=== PATIENT | female | born 1960 | race Caucasian/White ===

== ENCOUNTER 2021-12-18 00:05 | Inpatient (IN) | payer OTHER ==
[~2021-12-18] VITALS: Ht 165.1 cm; Wt 159.0 kg
[~2021-12-18 00:05] MED LIST: BAYER CHEWABLE81 MG PO; GABAPENTIN600 MG PO; TRAMADOL HCL50 MG PO; ULTRAM50 MG PO
[2021-12-18] MEDS ORDERED: GABAPENTIN600 MG PO (00:43)
[2021-12-18 01:00] LABS: BASOPHIL 0 % (0-2); EOSINOPHIL 0 % (0-5); HCT 39.4 % (37.0-47.0); HGB 12.8 g/dl (12.5-16.0); LYMPHOCYTE 44.1 % (15-48); MCHC 32.5 g/dL (32.0-36.0); MCV 92.3 fL (78.0-100.0); MONOCYTE 14.2 % (0-12); MPV 10.9 fL (6.0-9.5); NEUTROPHIL 41.2 % (41-80); NRBC 0; PLT 136 K/uL (150-400); RBC 4.27 M/uL (4.20-5.40); RDW 14.6 % (11.5-14.0)
[2021-12-18 01:21] LABS: BILIRUBIN - TOTAL 0.4 mg/dL (0.2-1.0); BUN/CREAT RATIO (CALC) 11.5 RATIO; CREATININE 0.87 mg/dL (0.51-0.95); GLOBULIN (CALCULATION) 3.9 g/dL; POTASSIUM 3.7 mmol/L (3.5-5.1); TOTAL PROTEIN 6.9 g/dL (6.4-8.2)
[2021-12-18 01:33] LABS: INFLUENZA A NAA NEGATIVE (NEGATIVE)
[2021-12-18 01:34] LABS: CORONAVIRUS 2019 SARS-COV-2 POSITIVE (NEGATIVE)
[2021-12-18 10:11] LABS: HCT 41.4 % (37.0-47.0); HGB 13.2 g/dl (12.5-16.0); MCH 29.4 pg (25.0-31.0); MCHC 31.9 g/dL (32.0-36.0); MCV 92.2 fL (78.0-100.0); MPV 10.8 fL (6.0-9.5); RBC 4.49 M/uL (4.20-5.40); RDW 14.6 % (11.5-14.0); WBC 2.3 K/uL (4.0-10.5)
[2021-12-18 10:27] LABS: BUN/CREAT RATIO (CALC) 13.1 RATIO; CREATININE 0.84 mg/dL (0.51-0.95)
[2021-12-19] MEDS ORDERED: TRAMADOL HCL50 MG PO (00:44)
[2021-12-19] MEDS ORDERED: DIOVAN40 MG PO (00:45)
[2021-12-19] MEDS ORDERED: UROCIT-K10 MEQ PO (00:45)
[2021-12-19] MEDS ORDERED: VITAMIN D250 MCG PO (00:47)
[2021-12-19] MEDS ORDERED: ALLOPURINOL100 MG PO (00:47)
[2021-12-19] MEDS ORDERED: LASIX40 MG PO (00:48)
[2021-12-19] MEDS ORDERED: SYNTHROID25 MCG PO (00:48)
[2021-12-19] MEDS ORDERED: PRAVASTATIN SOD10 MG PO (00:49)
[2021-12-19] MEDS ORDERED: PROTONIX 40MG T40 MG PO (00:49)
[2021-12-19] MEDS ORDERED: ATENOLOL25 MG PO (00:50)
[2021-12-19] MEDS ORDERED: PLAVIX75 MG PO (00:50)
[2021-12-19 06:07] LABS: BASOPHIL 0 % (0-2); EOSINOPHIL 0 % (0-5); HCT 38.3 % (37.0-47.0); HGB 12.4 g/dl (12.5-16.0); LYMPHOCYTE 29.7 % (15-48); MCH 29.3 pg (25.0-31.0); MCHC 32.4 g/dL (32.0-36.0); MCV 90.5 fL (78.0-100.0); MONOCYTE 8.4 % (0-12); MPV 10.5 fL (6.0-9.5); NEUTROPHIL 61.6 % (41-80); NRBC 0; PLT 143 K/uL (150-400); RBC 4.23 M/uL (4.20-5.40); RDW 14.3 % (11.5-14.0)
[2021-12-19 06:15] LABS: INR 1.09 (0.9-1.2); PROTHROMBIN TIME 13.5 SECONDS (11.8-13.4); PTT 31.1 SECONDS (24.4-34.7)
[2021-12-19 06:32] LABS: ALBUMIN 2.9 g/dL (3.4-5.0); BILIRUBIN - TOTAL 0.3 mg/dL (0.2-1.0); BUN/CREAT RATIO (CALC) 14.9 RATIO; C-REACTIVE PROTEIN 3.7 mg/dL (<=0.90); CREATININE 0.67 mg/dL (0.51-0.95); GLOBULIN (CALCULATION) 3.2 g/dL; MAGNESIUM 1.8 mg/dL (1.8-2.4); PHOSPHORUS 3.1 mg/dL (2.6-4.7); POTASSIUM 3.5 mmol/L (3.5-5.1); TOTAL PROTEIN 6.1 g/dL (6.4-8.2)
[2021-12-19 12:22] LABS: LACTIC ACID 2.7 mmol/L (0.4-1.9)
[2021-12-20 05:13] LABS: BASOPHIL 0.3 % (0-2); EOSINOPHIL 0 % (0-5); HGB 12.9 g/dl (12.5-16.0); LYMPHOCYTE 25.7 % (15-48); MCH 29.4 pg (25.0-31.0); MCHC 32.3 g/dL (32.0-36.0); MCV 91.1 fL (78.0-100.0); MONOCYTE 12.6 % (0-12); MPV 10.5 fL (6.0-9.5); NEUTROPHIL 61.1 % (41-80); NRBC 0; PLT 172 K/uL (150-400); RBC 4.39 M/uL (4.20-5.40); RDW 14.4 % (11.5-14.0)
[2021-12-20 05:24] LABS: BUN/CREAT RATIO (CALC) 19.2 RATIO; CREATININE 0.73 mg/dL (0.51-0.95)
[2021-12-20 05:29] LABS: WBC 3.6 K/uL (4.0-10.5)
--- NOTE | 2021-12-20 12:12 | NUR ---
12/20/21 Ms. Dong lives at home with her spouse. She has a rw. A referral was made to [facility] for 02 at 3L per patient choice. Report given to RIANNA Pacheco, RN.
[2021-12-20] MEDS ORDERED: DEXAMETHASONE 2M2 MG PO (13:04)
== END 2021-12-20 14:00 | disposition home or self-care (01) | DRG 177 ==
LOC: FER 00:05 → FTCU 20:32
PROVIDERS: Allergy & Immunology Allergy; Emergency Medicine; Nurse Practitioner; ADMIT Internal Medicine
PROC: XW033E5 Introduction of Remdesivir Anti-infective into Peripheral Vein, Percutaneous Approach, New Technology Group 5 (ICD-10-PCS; principal; 2021-12-18)
PROC: XW0DXM6 Introduction of Baricitinib into Mouth and Pharynx, External Approach, New Technology Group 6 (ICD-10-PCS; 2021-12-18)
PROC: 8E0ZXY6 Isolation (ICD-10-PCS; 2021-12-18)
PROC: 3E033XZ Introduction of Vasopressor into Peripheral Vein, Percutaneous Approach (ICD-10-PCS; 2021-12-18)
PROC: 5A0945A Assistance with Respiratory Ventilation, 24-96 Consecutive Hours, High Flow/Velocity Cannula (ICD-10-PCS; 2021-12-18)
DX: U07.1 COVID-19 (principal); J12.82 Pneumonia due to coronavirus disease 2019; J96.01 Acute respiratory failure with hypoxia; Z68.43 Body mass index [BMI] 50.0-59.9, adult; I11.0 Hypertensive heart disease with heart failure; I50.9 Heart failure, unspecified; Z66 Do not resuscitate; M10.9 Gout, unspecified; E78.5 Hyperlipidemia, unspecified; E11.40 Type 2 diabetes mellitus with diabetic neuropathy, unspecified; I95.9 Hypotension, unspecified; E86.9 Volume depletion, unspecified; M79.7 Fibromyalgia; K21.9 Gastro-esophageal reflux disease without esophagitis; I25.10 Atherosclerotic heart disease of native coronary artery without angina pectoris; Z96.651 Presence of right artificial knee joint; E66.9 Obesity, unspecified; E03.9 Hypothyroidism, unspecified; M32.9 Systemic lupus erythematosus, unspecified; Z79.899 Other long term (current) drug therapy; Z79.82 Long term (current) use of aspirin; Z79.02 Long term (current) use of antithrombotics/antiplatelets; Z88.1 Allergy status to other antibiotic agents; Z88.5 Allergy status to narcotic agent; Z88.8 Allergy status to other drugs, medicaments and biological substances; Z90.49 Acquired absence of other specified parts of digestive tract; Z98.890 Other specified postprocedural states; Z87.891 Personal history of nicotine dependence; Z99.81 Dependence on supplemental oxygen
CPT/HCPCS: 36415; 36600; 71045; 71275; 80048; 80053; 82728; 82803; 82962; 83036; 83605; 83615; 83735; 83880; 84100; 84145; 84484; 85025; 85610; 85730; 86140; 87040; 93005; 94010; 94640; 94664; 94760; 94762; C9399; J1100; J1644; J1650; J1885; J2405; J3490; J7030; J7050; J7060; J8540; Q9967; U0002